=== PATIENT | female | born 1935 | race Caucasian/White ===

== ENCOUNTER 2017-09-08 13:12 | Emergency (ER) | payer OTHER ==
[~2017-09-08] VITALS: Ht 165.1 cm; Wt 46.7 kg
[~2017-09-08 13:12] MED LIST: AMITRIPTYLINE H25 M2 PO; ASPIR 8181 MG PO; BACLOFEN 10MG T10 MG PO; BACTRIM DS TAB1 EACH PO; CIPRO500 MG PO; HYDROCODONE-AP1 EAC6 PO; KEFLEX500 MG PO; KLONOPIN1 MG PO; LEVOXYL125 MCG PO; METFORMIN HCL500 MG PO; PHENAZOPYRIDIN200 M2 PO; PHENOBARBITAL64.8 MG PO
[2017-09-08 15:34] VITALS: BP 139/54
== END 2017-09-08 15:35 | disposition home or self-care (01) ==
LOC: M.ERS 13:12
DX: S51.812A Laceration without foreign body of left forearm, initial encounter (principal); E03.9 Hypothyroidism, unspecified; G43.909 Migraine, unspecified, not intractable, without status migrainosus; W18.39XA Other fall on same level, initial encounter; Y93.89 Activity, other specified; Y92.121 Bathroom in nursing home as the place of occurrence of the external cause; Y99.8 Other external cause status; Z86.73 Personal history of transient ischemic attack (TIA), and cerebral infarction without residual deficits; Z88.8 Allergy status to other drugs, medicaments and biological substances

== ENCOUNTER 2017-09-24 13:30 | Emergency (ER) | payer OTHER ==
[~2017-09-24] VITALS: Ht 165.1 cm; Wt 46.7 kg
[2017-09-24] MEDS ORDERED: AMARYL4 MG PO (13:55)
[2017-09-24] MEDS ORDERED: BACTROBAN CREAM30 G1 TOP (14:17)
[2017-09-24] MEDS ORDERED: KEFLEX500 M1 PO (14:17)
[2017-09-24] MEDS ORDERED: BACTRIM DS TAB1 EACH PO (14:17)
[2017-09-24 14:37] VITALS: BP 155/62
== END 2017-09-24 14:38 | disposition home or self-care (01) ==
LOC: M.ERS 13:30
DX: L03.115 Cellulitis of right lower limb (principal); E03.9 Hypothyroidism, unspecified; G43.909 Migraine, unspecified, not intractable, without status migrainosus; E11.9 Type 2 diabetes mellitus without complications; Z86.73 Personal history of transient ischemic attack (TIA), and cerebral infarction without residual deficits; Z90.710 Acquired absence of both cervix and uterus; Z85.841 Personal history of malignant neoplasm of brain; Z88.8 Allergy status to other drugs, medicaments and biological substances